=== PATIENT | male | born 1975 | race Caucasian/White ===

== ENCOUNTER 2017-10-06 16:15 | Emergency (ER) | payer BC ==
--- NOTE | 2017-10-06 16:43 | EDM.PDOC ---
ED HPI GENERAL MEDICAL PROBLEM - General Chief Complaint: Cardiovascular Problem Stated Complaint: HIGH BP/SLIGHT CHEST PAIN Time Seen by Provider: 10/06/17 16:22 Source of Information: Reports: Patient History Limitations: Reports: No Limitations - History of Present Illness INITIAL COMMENTS - FREE TEXT/NARRATIVE: 42-year-old male presents for evaluation and treatment of high blood pressure and chest pain. Patient states that he's been feeling chest palpitations for the last 3 nights. He did develop some today which is what concerned him. He contact his primary care provider, was out for the day, he instructed by his nurse to come to the ER for evaluation. He denies any current chest pain or palpitations. States he gets some discomfort to his left lower lungs at night. No fevers, chills, nausea, vomiting, shortness of breath, lightheadedness, dizziness, syncope, diaphoresis or any vision changes. No abdominal pain. He states he has a slight headache. He feels slight dry cough. Patient did take a lorazepam, which he has at home for sleep, prior to arrival in the ER. Patient reports he had a stress test a couple years ago. He also recently had a CT coronary calcium score an EKG done recently. Patient uses a CPAP at night. No cardiac history. Patient reports that he took his blood pressure earlier was 153/103 at home. 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 Denies: Shortness of Breath, Sputum Cardiovascular: Reports: Blood Pressure Problem, Palpitations. Denies: Chest Pain, Lightheadedness, Syncope GI/Abdominal: Denies: Abdominal Pain, Nausea, Vomiting Neurological: Reports: Headache. Denies: Dizziness, Syncope ED EXAM, GENERAL - Physical Exam Exam: See Below Exam Limited By: No Limitations General Appearance: Alert, WD/WN, No Apparent Distress, Obese Eye Exam: Bilateral Eye: Conjunctival Injection (bilateral) Ears: Normal External Exam Nose: Normal Inspection Throat/Mouth: Normal Inspection, Normal Voice, No Airway Compromise Respiratory/Chest: No Respiratory Distress, Lungs Clear, Normal Breath Sounds Cardiovascular: Normal Peripheral Pulses, Regular Rate, Rhythm, No Murmur GI/Abdominal: Normal Bowel Sounds, Soft, Non-Tender Neurological: Alert, Oriented, Normal Cognition Psychiatric: Anxious Skin Exam: Warm, Dry, Normal Color EKG INTERPRETATION EKG Date: 10/06/17 Time: 17:15 Rhythm: NSR Rate (Beats/Min): 78 [place]: Normal P-Wave: Present QRS: Normal ST-T: Normal QT: Normal EKG Interpretation Comments: NSR At 78 bpm. No acute changes. Reviewed by myself and Dr. Perry. Course - Vital Signs Last Recorded V/S: Last Vital Signs Temp 36.2 C 10/06/17 16:23 Pulse 70 10/06/17 16:23 Resp 12 10/06/17 16:23 BP 137/91 H 10/06/17 16:23 Pulse Ox 97 10/06/17 16:23 - Orders/Labs/Meds Labs: Laboratory Tests 10/06/17 10/06/17 Range/Units 16:58 16:58 WBC 8.98 (4.23-9.07) K/mm3 RBC 4.69 (4.63-6.08) M/mm3 Hgb 14.1 (13.7-17.5) gm/L Hct 42.2 (40.1-51.0) % MCV 90.0 (79.0-92.2) fl MCH 30.1 (25.7-32.2) pg MCHC 33.4 (32.2-35.5) g/dl RDW Std Deviation 42.3 (35.1-43.9) fL Plt Count 205 (163-337) K/mm3 MPV 9.7 (9.4-12.3) fl Neut % (Auto) 71.4 H (34.0-67.9) % Lymph % (Auto) 18.6 L (21.8-53.1) % [place] % (Auto) 8.8 (5.3-12.2) % Eos % (Auto) 0.7 L (0.8-7.0) Baso % (Auto) 0.2 (0.1-1.2) % Neut # (Auto) 6.41 H (1.78-5.38) K/mm3 Lymph # (Auto) 1.67 (1.32-3.57) K/mm3 [place] # (Auto) 0.79 (0.30-0.82) K/mm3 Eos # (Auto) 0.06 (0.04-0.54) K/mm3 Baso # (Auto) 0.02 (0.01-0.08) K/mm3 Sodium 144 (136-145) mEq/L Potassium 3.9 (3.5-5.1) mEq/L Chloride 105 (98-107) mEq/L Carbon Dioxide 28 (21-32) mEq/L Anion Gap 14.9 (5-15) BUN 20 H (7-18) mg/dL Creatinine 1.0 (0.7-1.3) mg/dL Est Cr Clr Drug Dosing 102.49 mL/min Estimated GFR (MDRD) > 60 (>60) mL/min BUN/Creatinine Ratio 20.0 H (14-18) Glucose 102 (74-106) mg/dL Calcium 8.9 (8.5-10.1) mg/dL Total Bilirubin 0.4 (0.2-1.0) mg/dL AST 30 (15-37) U/L ALT 52 (16-63) U/L Alkaline Phosphatase 47 (46-116) U/L Troponin I < 0.017 (0.00-0.056) ng/mL Total Protein 7.2 (6.4-8.2) g/dl Albumin 4.1 (3.4-5.0) g/dl Globulin 3.1 gm/dL Albumin/Globulin Ratio 1.3 (1-2) TSH 3rd Generation 2.182 (0.358-3.74) uIU/mL - Radiology Interpretation Free Text/Narrative:: Chest: 2 views of the chest were obtained. Comparison: No prior chest x-ray. Heart size and mediastinum are normal. Lungs are clear. Bony structures appear within normal limits for the patient's age. Impression: 1. Nothing acute is seen on 2 view chest x-ray. - Re-Assessments/Exams Free Text/Narrative Re-Assessment/Exam: 10/06/17 18:37 I reviewed the labs, imaging EKG with the patient. likely anxiety causing his problems. He has seen Dr. Richards for similar complaints in the past. he has had a complete workup for this. I did offer him a Holter monitor but states he has had this several times in the past and no abnormalities have been found. I will discharge home at this time. Discharge instructions as documented. Departure - Departure Time of Disposition: 18:37 Disposition: Home, Self-Care 01 Condition: Fair Clinical Impression: Palpitations Instructions: Palpitations, [id number] Referrals: Twin Montero MD [Primary Care Provider] - Forms: ED Department Discharge Additional Instructions: Continue with your lorazepam as needed for anxiety. Follow-up with your primary care provide for recheck of your symptoms. We recommended she stop chewing tobacco. Please return to the ER if your symptoms change or worsen.
--- NOTE | 2017-10-07 08:30 | CR ---
Chest: Two views of the chest were obtained. Comparison: No prior chest x-ray. Heart size and mediastinum are normal. Lungs are clear. Bony structures appear within normal limits for the patient's age. Impression: 1. Nothing acute is seen on two-view chest x-ray. Diagnostic code #1
== END 2017-10-06 18:51 | disposition home or self-care (01) ==
LOC: JD.ED 16:15
DX: R00.2 Palpitations (principal); I10 Essential (primary) hypertension
CPT/HCPCS: 36415; 71046; 71046-26; 80053; 84443; 84484; 85025; 93005; 99285-25

== ENCOUNTER 2021-07-26 16:58 | Emergency (ER) | payer BC ==
[2021-07-26] MEDS ORDERED: HYDROmorphone 1 MG/ML Syringe IM ONE (17:28)
== END 2021-07-26 18:30 | disposition home or self-care (01) ==
LOC: JD.ED 16:58
DX: S93.401A Sprain of unspecified ligament of right ankle, initial encounter (principal); E78.00 Pure hypercholesterolemia, unspecified; I10 Essential (primary) hypertension; W00.0XXA Fall on same level due to ice and snow, initial encounter
CPT/HCPCS: 73610; 96372; 99283; J1170

== ENCOUNTER 2023-12-16 08:35 | Day surgery (SDC) | payer BC ==
[~2023-12-16 08:35] MED LIST: Sodium Chloride 0.9% 10 ML Syringe FLUSH PRN; Sodium Chloride 0.9% 10 ML Syringe FLUSH SCH
[2023-12-16] MEDS ORDERED: fentaNYL 100 MCG/2 ML SDV IVPUSH PRN (09:44)
[2023-12-16] MEDS ORDERED: HYDROmorphone 0.5 MG/0.5 ML Syringe IVPUSH PRN (09:44)
[2023-12-16] MEDS ORDERED: Ondansetron 4 MG/2 ML SDV IVPUSH PRN (09:44)
[2023-12-16] MEDS ORDERED: Ropivacaine 0.5% 5 MG/ML 30 ML SDV ONE (09:47)
[2023-12-16] MEDS ORDERED: Propofol 200 MG/20 ML SDV ONE (10:52)
[2023-12-16] MEDS ORDERED: Midazolam 1 MG/ML 2 ML SDV ONE (10:53)
[2023-12-16] MEDS ORDERED: fentaNYL 100 MCG/2 ML SDV ONE (10:53)
[2023-12-16] MEDS ORDERED: ceFAZolin 2 GM Vial ONE ×2 (10:57)
[2023-12-16] MEDS ORDERED: Rocuronium 50 MG/5 ML Vial ONE (10:57)
[2023-12-16] MEDS ORDERED: Ondansetron 4 MG/2 ML SDV ONE (10:57)
[2023-12-16] MEDS ORDERED: Dexamethasone 4 MG/ML 5 ML MDV ONE (10:57)
[2023-12-16] MEDS: oxyCODONE ER 10 MG TAB.ER PO ONE (12:30)
[2023-12-16] MEDS: Acetaminophen 325 MG Tab PO ONE (12:30)
[2023-12-16] MEDS: Pregabalin 25 MG Cap PO ONE (12:30)
[2023-12-16] MEDS ORDERED: Lactated Ringers 1,000 ML IV ONE (13:00)
[2023-12-16] MEDS: Tranexamic Acid 1,000 MG/10 ML Vial ONE (14:34)
[2023-12-16] MEDS: Vancomycin 1 GM SDV ONE (14:34)
[2023-12-16] MEDS: Lactated Ringers 1,000 ML IV SCH (15:29)
[2023-12-16] MEDS: oxyCODONE 5 MG Tab PO PRN (16:04)
== END 2023-12-16 17:10 | disposition home or self-care (01) ==
LOC: JD.SDS 08:35
PROVIDERS: ATTEND Orthopaedic Surgery
DX: M19.012 Primary osteoarthritis, left shoulder (principal); I25.10 Atherosclerotic heart disease of native coronary artery without angina pectoris; K21.9 Gastro-esophageal reflux disease without esophagitis; I10 Essential (primary) hypertension; E78.5 Hyperlipidemia, unspecified; E66.01 Morbid (severe) obesity due to excess calories; Z79.82 Long term (current) use of aspirin; Z79.899 Other long term (current) drug therapy
CPT/HCPCS: 23472; 76000; 97161; 97530; A9270; C1713; C1769; C1776; J0690; J1100; J2250; J2405; J2704; J2795; J3010; J3370; J7120; 01638; J3490